=== PATIENT | male | born 1995 ===

== ENCOUNTER 2016-10-30 15:46 | Emergency (ER) | payer BC ==
[2016-10-30 18:03] VITALS: BP 118/73
--- NOTE | 2016-10-30 18:15 | UC ---
Ear Complaint HPI - HPI Summary HPI Summary: Left ear auricle swelling s/p injury during wrestling; left lower lip lesion for 5 day [ End ] - History of Current Complaint Chief Complaint: UCEar Stated Complaint: EAR COMPLAINT Time Seen by Provider: 10/30/16 18:09 Hx Obtained From: Patient Onset/Duration: Gradual Onset Severity Initially: Mild Severity Currently: Mild - Allergies/Home Medications Allergies/Adverse Reactions: Allergies Allergy/AdvReac Type Severity Reaction Status Date / Time seafood/shellfish Allergy Swelling Uncoded 10/30/16 18:04 Of Face,Lips,& Throat Home Medications: Home Medications NK [No Home Medications Reported] 10/30/16 [History Confirmed 10/30/16] PMH/Surg Hx/FS Hx/Imm Hx Previously Healthy: Yes Endocrine History Of: Denies: Diabetes Cardiovascular History Of: Denies: Hypertension, Pacemaker/ICD Respiratory History Of: Denies: Asthma GI/ History Of: Denies: Gastroesophageal Reflux, Renal Disease Neurological History Of: Denies: CVA Psychological History Of: Denies: Anxiety Cancer History Of: Denies: Colorectal Cancer Other History Of: Negative For: HIV - Surgical History Surgical History: None - Family History Known Family History: Positive: None - Social History Occupation: [employer] Alcohol Use: Rare Substance Use Type: None Smoking Status (MU): Never Smoked Tobacco Review of Systems Constitutional: Negative Skin: Negative, Other - left ear swelling and healing left lower lip swelling Eyes: Negative ENT: Negative Respiratory: Negative Cardiovascular: Negative Gastrointestinal: Negative Genitourinary: Negative Motor: Negative Neurovascular: Negative Musculoskeletal: Negative Neurological: Negative Psychological: Negative All Other Systems Reviewed And Are Negative: Yes Physical Exam Triage Information Reviewed: Yes Appearance: Well-Appearing, No Pain Distress, Well-Nourished Vital Signs: Initial Vital Signs Temp 99.7 F 10/30/16 17:57 Pulse 58 10/30/16 17:57 Resp 18 10/30/16 17:57 BP 118/73 10/30/16 17:57 Vital Signs Reviewed: Yes Eye Exam: Normal ENT Exam: Normal, Other - left ear with auricular hematoma Dental Exam: Normal Neck exam: Normal Neck: Positive: 1 Respiratory Exam: Normal Cardiovascular Exam: Normal Abdominal Exam: Normal Musculoskeletal Exam: Normal Neurological Exam: Normal Psychological Exam: Normal Skin Exam: Normal Skin: Positive: Other - left lower lip with round small circular healing lesion , not vesicular Ear Complaint Course/Dx - Course Course Of Treatment: Patient requests tomorrow in [place] as he is [employer] [place] [employer] student and prefers Dr Whipple but will give referral info for Dr Prasad. As the size is small to moderate will advise to have ENT aspirate the fluid and patient very agreeable to this. - Differential Dx/Diagnosis Provider Diagnoses: Traumatic Auricular Hematoma Left ear Discharge - Discharge Plan Condition: Good Disposition: HOME Patient Education Materials: Hematoma (ED) Referrals: Non Staff,Doctor [Primary Care Provider] - 3 Days Favian Prasad MD [Medical Doctor] - Additional Instructions: You have been diagnosed with a traumatic auricular hematoma or Cauliflower ear . Since the ear is not significantly painful or swollen there is time to refer you to ENT. Please call [facility] for an appt.
== END 2016-10-30 18:39 | disposition home or self-care (01) ==
LOC: UCCORT 15:46
DX: S00.432A Contusion of left ear, initial encounter (principal); X58.XXXA Exposure to other specified factors, initial encounter; Y93.72 Activity, wrestling; Y92.9 Unspecified place or not applicable
CPT/HCPCS: 99211; G0463